=== PATIENT | female | born 1990 | race Caucasian/White ===

== ENCOUNTER 2023-07-24 08:52 | Emergency (ER) | payer BC ==
[~2023-07-24] VITALS: Ht 162.6 cm; Wt 108.9 kg
[2023-07-24] MEDS ORDERED: ALBUTEROL FS 2.5 MG/3 ML VIAL.NEB ONE (09:06)
[2023-07-24] MEDS ORDERED: predniSONE 20 MG TABLET ONE (09:09)
[2023-07-24] MEDS: ALBUTEROL FS 2.5 MG/0.5 ML VIAL.NEB NEB ONE ×2 (09:10→10:07)
[2023-07-24 09:11] VITALS: O2SAT 92
[2023-07-24] MEDS: predniSONE 20 MG TABLET PO ONE ×2 (09:11→09:21)
[2023-07-24 09:21] VITALS: O2SAT 100
[2023-07-24] MEDS: ALBUTEROL FS 2.5 MG/3 ML VIAL.NEB CONTNEB ONE (09:21)
[2023-07-24] MEDS: IPRATROPIUM NEB FS 0.5 MG/2.5 ML AMPUL.NEB NEB ONE ×2 (09:33→10:07)
[2023-07-24] MEDS ORDERED: ALBUTEROL FS 2.5 MG/0.5 ML VIAL.NEB ONE (10:02)
[2023-07-24] MEDS ORDERED: IPRATROPIUM NEB FS 0.5 MG/2.5 ML AMPUL.NEB ONE (10:02)
[2023-07-24 10:08] VITALS: O2SAT 100; O2SAT 97
[2023-07-24] MEDS ORDERED: ALBU18HF2 INH (10:27)
[2023-07-24] MEDS ORDERED: PRED50TA PO (10:27)
[2023-07-24 10:37] VITALS: BP 120/81; TEMP 98.3; O2SAT 99
== END 2023-07-24 10:38 | disposition home or self-care (01) ==
LOC: ER 09:03
DX: J45.901 Unspecified asthma with (acute) exacerbation (principal); Z79.899 Other long term (current) drug therapy
CPT/HCPCS: 99285; 94640 ×2; J7512